=== PATIENT | female | born 1940 | race Caucasian/White ===

== ENCOUNTER 2016-09-09 09:40 | Day surgery (SDC) | payer OTHER ==
[~2016-09-09] VITALS: Ht 172.7 cm; Wt 74.0 kg
[~2016-09-09 09:40] MED LIST: AMLO10TA2 PO; APIX2.5T PO; ASPI325T4 PO; DILT240C2 PO; EZET10TA3 PO; LOSA25TA5 PO; LOVA10TA PO; METO25TA35 PO; VALS160T3 PO
[2016-09-09 10:08] VITALS: BP 148/86
[2016-09-09] MEDS ORDERED: DIGO125T PO (10:27)
[2016-09-09] MEDS ORDERED: CHOL500014 PO (10:27)
[2016-09-09] MEDS ORDERED: MONT10TA9 PO (10:27)
[2016-09-09 10:44] LABS: BLOOD UREA NITROGEN 23 mg/dL (7-18)
[2016-09-09] MEDS ORDERED: PROPOFOL 10 MG/ML, 20ML ONE (10:58)
== END 2016-09-09 12:33 ==
LOC: CACL 09:40
PROVIDERS: ATTEND Internal Medicine Cardiovascular Disease
DX: I48.91 Unspecified atrial fibrillation (principal); I10 Essential (primary) hypertension; E21.3 Hyperparathyroidism, unspecified; J45.909 Unspecified asthma, uncomplicated; E78.2 Mixed hyperlipidemia; J44.9 Chronic obstructive pulmonary disease, unspecified; I25.10 Atherosclerotic heart disease of native coronary artery without angina pectoris; Z95.1 Presence of aortocoronary bypass graft; Z88.1 Allergy status to other antibiotic agents; Z79.01 Long term (current) use of anticoagulants
CPT/HCPCS: 36415; 80048; 92960; 93005; J2704

== ENCOUNTER → 2016-09-18 | Outpatient (CLI) | payer OTHER ==
[~2016-09-18] MED LIST changes: +CHOL500014 PO; +DIGO125T PO; +MONT10TA9 PO
== END | disposition home or self-care (01) ==
LOC: RAD 14:44
PROVIDERS: ATTEND Internal Medicine Cardiovascular Disease
DX: I63.9 Cerebral infarction, unspecified (principal); H53.451 Other localized visual field defect, right eye
CPT/HCPCS: 70544; 70549; 70553

== ENCOUNTER → 2016-09-18 | Outpatient (CLI) | payer OTHER | END | disposition home or self-care (01) | LOC: CFH 13:20 | PROVIDERS: ATTEND Internal Medicine Cardiovascular Disease | DX: I08.1 Rheumatic disorders of both mitral and tricuspid valves (principal); I48.0 Paroxysmal atrial fibrillation | CPT/HCPCS: 93306 ==

== ENCOUNTER → 2016-10-15 | Outpatient (CLI) | payer OTHER ==
[~2016-10-15] MED LIST changes: +ASPI325T17 PO; -ASPI325T4 PO
== END | disposition home or self-care (01) ==
LOC: CFH 06:38
PROVIDERS: ATTEND Internal Medicine Cardiovascular Disease
DX: R74.8 Abnormal levels of other serum enzymes (principal); R79.89 Other specified abnormal findings of blood chemistry
CPT/HCPCS: 76700

== ENCOUNTER 2017-10-31 15:05 | Emergency (ER) | payer OTHER ==
[~2017-10-31] VITALS: Ht 172.7 cm; Wt 74.0 kg
[~2017-10-31 15:05] MED LIST changes: +ALBU0.63 NEB; +ALBU8.5H8 INH; -AMLO10TA2 PO; +AMLO10TA6 PO; -CHOL500014 PO; +CHOL500045 PO; +EZET10TA18 PO; -EZET10TA3 PO; +FLUT1AER INH; -LOSA25TA5 PO; +LOSA25TA6 PO; +SOTA80TA18 PO
[2017-10-31] MEDS ORDERED: SODIUM CHLORIDE FLUSH 10ML SYR IVF ONE (15:30)
[2017-10-31 15:48] LABS: ALBUMIN 3.7 g/dL (3.4-5.0); ANION GAP 9 mmol/L (5-15); BASOPHILS # (AUTO) 0.04 x10^3/uL (0-0.1); BASOPHILS % (AUTO) 1 % (0-1); CALCIUM 9.5 mg/dL (8.5-10.1); CHLORIDE 108 mmol/L (98-107); CREATININE 0.82 mg/dL (0.55-1.02); EOSINOPHILS # (AUTO) 0.13 x10^3/uL (0-0.4); EOSINOPHILS % (AUTO) 2 % (1-7); LYMPHOCYTES # (AUTO) 1.48 x10^3/uL (1-3.4); LYMPHOCYTES % (AUTO) 27 % (22-44); MD NO; MEAN CORPUSCULAR HEMOGLOBIN 28.7 pg (27.0-34.8); MEAN CORPUSCULAR HGB CONC 33.6 g/dL (32.4-35.8); MEAN CORPUSCULAR VOLUME 85.4 fL (80-100); MONOCYTES # (AUTO) 0.69 x10^3/uL (0.2-0.8); MONOCYTES % (AUTO) 12 % (2-9); NEUTROPHILS # (AUTO) 3.23 x10^3/uL (1.8-6.8); NEUTROPHILS % (AUTO) 58 % (42-75); PLATELET COUNT 233 x10^3/uL (130-400); RED BLOOD COUNT 4.82 x10^6/uL (3.82-5.3); RED CELL DISTRIBUTION WIDTH 13.9 % (9.6-15.2)
[2017-10-31 15:51] LABS: INTERNATIONAL NORMALIZED RATIO 1.02 (0.93-1.1); PROTHROMBIN TIME 10.6 Seconds (9.6-11.5)
[2017-10-31 15:52] LABS: TROPONIN I < 0.015 ng/mL (0.000-0.045)
[2017-10-31] MEDS ORDERED: PROPOFOL 10 MG/ML, 20ML ONE (15:56)
[2017-10-31] MEDS ORDERED: PROPOFOL 10 MG/ML, 20ML IVPush ONE (16:30)
[2017-10-31 17:39] VITALS: BP 135/76
== END 2017-10-31 17:42 | disposition home or self-care (01) ==
LOC: ED 17:20
DX: I48.0 Paroxysmal atrial fibrillation (principal); I25.2 Old myocardial infarction; I10 Essential (primary) hypertension; J45.909 Unspecified asthma, uncomplicated; Z88.2 Allergy status to sulfonamides
CPT/HCPCS: 36415; 71045; 80048; 82040; 83735; 84484; 85025; 85610; 85730; 92960; 93005; 99285; J2704

== ENCOUNTER → 2018-03-04 | Outpatient (CLI) | payer OTHER ==
[~2018-03-04] MED LIST changes: +LOSA25TA25 PO; -LOSA25TA6 PO; +REGADENOSON 0.4 MG/5 ML SYRINGE ONE
== END | disposition home or self-care (01) ==
LOC: CFH 12:08
PROVIDERS: ATTEND Internal Medicine Cardiovascular Disease
DX: I07.1 Rheumatic tricuspid insufficiency (principal); I37.1 Nonrheumatic pulmonary valve insufficiency; I34.8 Other nonrheumatic mitral valve disorders; I10 Essential (primary) hypertension; I25.2 Old myocardial infarction; I48.91 Unspecified atrial fibrillation; R06.02 Shortness of breath
CPT/HCPCS: 78452; 93017; 93306; A9502; J2785

== ENCOUNTER 2018-03-13 11:35 | Observation (INO) | payer OTHER ==
[~2018-03-13] VITALS: Ht 172.7 cm; Wt 69.8 kg
[~2018-03-13 11:35] MED LIST changes: -AMLO10TA6 PO; +AMLO10TA8 PO; -REGADENOSON 0.4 MG/5 ML SYRINGE ONE
[2018-03-13] MEDS ORDERED: SODIUM CHLORIDE 0.9% 1,000 ML IV ONE (12:29)
[2018-03-13 12:32] VITALS: BP 149/76
[2018-03-13] MEDS ORDERED: BECL10.62 INH (12:43)
[2018-03-13] MEDS ORDERED: METO25TA35 PO (12:47)
[2018-03-13] MEDS ORDERED: ASCO10004 PO (12:47)
[2018-03-13] MEDS ORDERED: VITA1CAP PO (12:47)
[2018-03-13] MEDS ORDERED: HYDR-3342 PO (12:47)
[2018-03-13] MEDS ORDERED: NITR0.4T SL (12:47)
[2018-03-13 13:12] LABS: BASOPHILS # (AUTO) 0.06 x10^3/uL (0-0.1); BASOPHILS % (AUTO) 1 % (0-1); EOSINOPHILS # (AUTO) 0.09 x10^3/uL (0-0.4); EOSINOPHILS % (AUTO) 2 % (1-7); LYMPHOCYTES # (AUTO) 1.19 x10^3/uL (1-3.4); LYMPHOCYTES % (AUTO) 24 % (22-44); MD NO; MEAN CORPUSCULAR HGB CONC 32.9 g/dL (32.4-35.8); MEAN CORPUSCULAR VOLUME 85.1 fL (80-100); MONOCYTES # (AUTO) 0.49 x10^3/uL (0.2-0.8); MONOCYTES % (AUTO) 10 % (2-9); NEUTROPHILS # (AUTO) 3.17 x10^3/uL (1.8-6.8); NEUTROPHILS % (AUTO) 63 % (42-75); PLATELET COUNT 217 x10^3/uL (130-400); RED BLOOD COUNT 4.59 x10^6/uL (3.82-5.3); RED CELL DISTRIBUTION WIDTH 13.8 % (9.6-15.2)
[2018-03-13 13:22] LABS: ANION GAP 10 mmol/L (5-15); CALCIUM 9.9 mg/dL (8.5-10.1); CHLORIDE 105 mmol/L (98-107); CREATININE 0.73 mg/dL (0.55-1.02)
[2018-03-13] MEDS ORDERED: MIDAZOLAM 1 MG/ML, 5ML ONE (14:04)
[2018-03-13] MEDS ORDERED: BIVALIRUDIN 250 MG ONE (14:04)
[2018-03-13] MEDS ORDERED: LIDOCAINE 2%, 20ML ONE (14:04)
[2018-03-13] MEDS ORDERED: FENTANYL PF 100 MCG/2ML ONE (14:04)
[2018-03-13] MEDS ORDERED: BIVALIRUDIN 250 MG in DEXTROSE 5% 100 ML IV SCH (15:49)
[2018-03-13] MEDS ORDERED: ASPIRIN 325 MG TABLET EC ONE (15:50)
[2018-03-13] MEDS ORDERED: CHOLECALCIFEROL 5,000u TAB PO ONE (16:00)
[2018-03-13] MEDS ORDERED: ZOLPIDEM 5MG TABLET PO PRN (16:00)
[2018-03-13] MEDS ORDERED: BECLOMETHASONE DIPROPIONATE 80 MCG INH PRN (16:00)
[2018-03-13] MEDS ORDERED: ONDANSETRON 2MG/ML, 2ML IVPush PRN (16:00)
[2018-03-13] MEDS ORDERED: ACETAMINOPHEN 325 MG TABLET PO PRN (16:00)
[2018-03-13] MEDS ORDERED: METOPROLOL TARTRATE 25 MG TABLET PO PRN (16:00)
[2018-03-13 16:59] VITALS: BP 144/76
[2018-03-13] MEDS: SODIUM CHLORIDE 0.9% 1,000 ML IV SCH ×2 (17:46→23:49)
[2018-03-13] MEDS ORDERED: SODIUM CHLORIDE 0.9% IV SCH (18:00)
[2018-03-13] MEDS ORDERED: BIVALIRUDIN IV SCH (18:00)
[2018-03-13 19:24] VITALS: BP 138/66
[2018-03-13] MEDS: TICAGRELOR 90 MG TABLET PO SCH (21:00)
[2018-03-13] MEDS ORDERED: AMLODIPINE 10 MG TAB PO SCH (21:00)
[2018-03-13] MEDS: SOTALOL 80MG TABLET PO SCH (21:11)
[2018-03-13] MEDS: APIXABAN 2.5 MG TABLET PO SCH (21:12)
[2018-03-13 22:38] LABS: TROPONIN I 0.121 ng/mL (0.000-0.045)
[2018-03-14 00:20] VITALS: BP 125/71
[2018-03-14] MEDS: SODIUM CHLORIDE 0.9% 1,000 ML IV SCH (01:17)
[2018-03-14 04:32] LABS: ANION GAP 9 mmol/L (5-15); CALCIUM 9.8 mg/dL (8.5-10.1); CHLORIDE 106 mmol/L (98-107); CREATININE 0.59 mg/dL (0.55-1.02)
[2018-03-14 06:20] VITALS: BP 118/68
[2018-03-14] MEDS: TICAGRELOR 90 MG TABLET PO SCH (08:25)
[2018-03-14] MEDS: APIXABAN 2.5 MG TABLET PO SCH (08:25)
[2018-03-14] MEDS: SOTALOL 80MG TABLET PO SCH (08:26)
[2018-03-14] MEDS ORDERED: ASPIRIN 81 MG TABLET EC PO SCH (09:00)
[2018-03-14] MEDS ORDERED: MULTIVITS,STRESS FORMULA 1 TABLET PO SCH (09:00)
[2018-03-14] MEDS ORDERED: ASCORBIC ACID 500 MG TABLET PO SCH (09:00)
[2018-03-14] MEDS ORDERED: VALSARTAN 320 MG TABLET PO SCH (09:00)
[2018-03-14] MEDS ORDERED: ASPI81TA45 PO (10:49)
[2018-03-14] MEDS ORDERED: TICA90TA PO (10:49)
== END 2018-03-14 12:51 | disposition home or self-care (01) ==
LOC: CACL 11:35 → 5SO 16:56 → CACL 23:09 → 5SO 23:17
PROVIDERS: ADMIT Internal Medicine Cardiovascular Disease; ATTEND Internal Medicine Cardiovascular Disease
DX: I25.10 Atherosclerotic heart disease of native coronary artery without angina pectoris (principal); I48.0 Paroxysmal atrial fibrillation; R05 Cough; I10 Essential (primary) hypertension; E78.2 Mixed hyperlipidemia; I34.0 Nonrheumatic mitral (valve) insufficiency; R74.8 Abnormal levels of other serum enzymes; H53.451 Other localized visual field defect, right eye; R10.9 Unspecified abdominal pain; Z79.01 Long term (current) use of anticoagulants; Z95.1 Presence of aortocoronary bypass graft
CPT/HCPCS: 36415; 80048; 84484; 85014; 85018; 85025; 93005; 93459; 96365; 99156; 99157; C1725; C1760; C1769; C1874; C1887; C1894; C9600; G0378; J0583; J2250; J3010; J3490; Q9967

== ENCOUNTER 2018-06-29 10:47 | Day surgery (SDC) | payer OTHER ==
[~2018-06-29] VITALS: Ht 172.7 cm; Wt 68.0 kg
[~2018-06-29 10:47] MED LIST changes: +ASCO10004 PO; +ASPI81TA45 PO; +BECL10.62 INH; +HYDR-3342 PO; +NITR0.4T SL; +TICA90TA PO; +VITA1CAP PO
[2018-06-29 11:09] VITALS: BP 143/93
[2018-06-29] MEDS ORDERED: PRAS10TA4 PO (11:19)
[2018-06-29] MEDS ORDERED: UMEC1DIS INH (11:19)
[2018-06-29] MEDS ORDERED: PROPOFOL 10 MG/ML, 50ML ONE (11:44)
== END 2018-06-29 13:15 | disposition home or self-care (01) ==
LOC: CACL 10:47
PROVIDERS: ATTEND Internal Medicine Cardiovascular Disease
DX: I48.0 Paroxysmal atrial fibrillation (principal); I47.1 Supraventricular tachycardia; I25.10 Atherosclerotic heart disease of native coronary artery without angina pectoris; I10 Essential (primary) hypertension; I34.0 Nonrheumatic mitral (valve) insufficiency; J45.909 Unspecified asthma, uncomplicated; E78.2 Mixed hyperlipidemia; E21.0 Primary hyperparathyroidism; E66.3 Overweight; Z68.22 Body mass index [BMI] 22.0-22.9, adult; Z79.01 Long term (current) use of anticoagulants; Z79.899 Other long term (current) drug therapy; Z88.2 Allergy status to sulfonamides; Z88.8 Allergy status to other drugs, medicaments and biological substances; Z95.5 Presence of coronary angioplasty implant and graft; Z98.890 Other specified postprocedural states
CPT/HCPCS: 92960; J2704

== ENCOUNTER 2018-12-15 08:40 | Outpatient (CLI) | payer MEDICARE, OTHER ==
[~2018-12-15 08:40] MED LIST changes: +AMIO200T42 PO; +APIX5TAB PO; -EZET10TA18 PO; +EZET10TA70 PO; -NITR0.4T SL; +NITR0.4T41 SL; +PRAS10TA4 PO; +UMEC1DIS INH
== END 2018-12-15 23:59 | disposition home or self-care (01) ==
LOC: CFH 08:40
PROVIDERS: ATTEND Internal Medicine Critical Care Medicine
DX: R91.1 Solitary pulmonary nodule (principal); J44.9 Chronic obstructive pulmonary disease, unspecified
CPT/HCPCS: 71250

== ENCOUNTER 2019-03-25 12:24 | Outpatient (CLI) | payer OTHER ==
[~2019-03-25 12:24] MED LIST changes: -DIGO125T PO; +DIGO125T85 PO; +MONT10TA11 PO; -MONT10TA9 PO
[2019-03-25] MEDS ORDERED: OMNIPAQUE 350 MG/ML, 75ML BOTTLE ONE (15:00)
[2019-04-02] MEDS ORDERED: AMIO100T4 PO (00:42)
[2019-04-02] MEDS ORDERED: LEVO25TA2 PO (10:45)
== END 2019-03-25 23:59 | disposition home or self-care (01) ==
LOC: RAD 12:24
PROVIDERS: ATTEND Internal Medicine Cardiovascular Disease
DX: I63.81 Other cerebral infarction due to occlusion or stenosis of small artery (principal); R41.3 Other amnesia
CPT/HCPCS: 70460; Q9967

== ENCOUNTER 2019-07-02 07:43 | Day surgery (SDC) | payer MEDICARE, OTHER ==
[~2019-07-02 07:43] MED LIST changes: +AMIO100T4 PO; +LEVO25TA2 PO
[2019-07-02 08:20] VITALS: BP 125/73
[2019-07-02] MEDS ORDERED: ATEN25TA PO (08:31)
[2019-07-02] MEDS ORDERED: FLUT1AER INH (08:31)
[2019-07-02] MEDS ORDERED: PRAS10TA4 PO (08:31)
[2019-07-02] MEDS ORDERED: LEVO50TA5 PO (08:31)
[2019-07-02 09:12] LABS: ANION GAP 7 mmol/L (5-15); CALCIUM 9.2 mg/dL (8.5-10.1); CHLORIDE 111 mmol/L (98-107); CREATININE 1.18 mg/dL (0.55-1.02)
[2019-07-02] MEDS ORDERED: PROPOFOL 10 MG/ML, 20ML ONE (09:52)
== END 2019-07-02 11:28 | disposition home or self-care (01) ==
LOC: CACL 07:43
PROVIDERS: ATTEND Internal Medicine Cardiovascular Disease
DX: I48.0 Paroxysmal atrial fibrillation (principal); I34.0 Nonrheumatic mitral (valve) insufficiency; I10 Essential (primary) hypertension; E78.2 Mixed hyperlipidemia; E03.9 Hypothyroidism, unspecified; I25.10 Atherosclerotic heart disease of native coronary artery without angina pectoris; E66.3 Overweight; Z68.22 Body mass index [BMI] 22.0-22.9, adult; Z79.01 Long term (current) use of anticoagulants; Z79.890 Hormone replacement therapy; Z79.899 Other long term (current) drug therapy; Z88.2 Allergy status to sulfonamides; Z88.8 Allergy status to other drugs, medicaments and biological substances; Z95.1 Presence of aortocoronary bypass graft; Z98.890 Other specified postprocedural states
CPT/HCPCS: 36415; 80048; 92960; J2704

== ENCOUNTER → 2019-09-15 | Outpatient (CLI) | payer OTHER ==
[~2019-09-15] MED LIST changes: +ATEN25TA PO; +LEVO50TA5 PO
== END | disposition home or self-care (01) ==
LOC: RAD 13:41
PROVIDERS: ATTEND Psychiatry & Neurology Neurology
DX: M43.12 Spondylolisthesis, cervical region (principal); M50.122 Cervical disc disorder at C5-C6 level with radiculopathy; M47.22 Other spondylosis with radiculopathy, cervical region
CPT/HCPCS: 72141

== ENCOUNTER 2019-09-20 08:22 | Observation (INO) | payer MEDICARE, OTHER ==
[~2019-09-20] VITALS: Ht 152.4 cm; Wt 73.6 kg
[~2019-09-20 08:22] MED LIST changes: +ASCO100018 PO; -ASCO10004 PO
[2019-09-20 08:47] VITALS: BP 131/85
[2019-09-20] MEDS ORDERED: CEFAZOLIN PMX 1GM/50ML 50 ML IVPB ONE (09:00)
[2019-09-20 09:14] LABS: BASOPHILS # (AUTO) 0.04 x10^3/uL (0-0.1); BASOPHILS % (AUTO) 1 % (0-1); EOSINOPHILS # (AUTO) 0.11 x10^3/uL (0-0.4); EOSINOPHILS % (AUTO) 2 % (1-7); LYMPHOCYTES # (AUTO) 1.19 x10^3/uL (1-3.4); LYMPHOCYTES % (AUTO) 22 % (22-44); MD NO; MEAN CORPUSCULAR HEMOGLOBIN 28.5 pg (27.0-34.8); MEAN CORPUSCULAR HGB CONC 32.9 g/dL (32.4-35.8); MEAN PLATELET VOLUME 8.6 fL (7.4-10.4); MONOCYTES # (AUTO) 0.58 x10^3/uL (0.2-0.8); MONOCYTES % (AUTO) 11 % (2-9); NEUTROPHILS # (AUTO) 3.49 x10^3/uL (1.8-6.8); NEUTROPHILS % (AUTO) 65 % (42-75); PLATELET COUNT 219 x10^3/uL (130-400); RED BLOOD COUNT 4.89 x10^6/uL (3.82-5.3); RED CELL DISTRIBUTION WIDTH 14.1 % (9.6-15.2)
[2019-09-20 09:24] LABS: ANION GAP 6 mmol/L (5-15); CALCIUM 9.6 mg/dL (8.5-10.1); CHLORIDE 114 mmol/L (98-107); CREATININE 0.95 mg/dL (0.55-1.02)
[2019-09-20] MEDS ORDERED: LIDOCAINE 2%, 20ML ONE (09:26)
[2019-09-20] MEDS ORDERED: CEFAZOLIN 1,000 MG ONE (09:26)
[2019-09-20] MEDS ORDERED: CEFAZOLIN PMX 1GM/50ML 50 ML ONE (09:26)
[2019-09-20] MEDS ORDERED: MIDAZOLAM 1 MG/ML, 5ML ONE (09:26)
[2019-09-20] MEDS ORDERED: FENTANYL PF 100 MCG/2ML ONE (09:26)
[2019-09-20] MEDS: SODIUM CHLORIDE 0.9% 1,000 ML IV SCH ×3 (10:00→19:19)
[2019-09-20] MEDS ORDERED: CHOLECALCIFEROL 1,000 UNIT TABLET PO SCH (11:30)
[2019-09-20] MEDS ORDERED: HOLD MEDICATION MC PRN (11:30)
[2019-09-20] MEDS ORDERED: ACETAMINOPHEN 325 MG TABLET ONE (14:57)
[2019-09-20] MEDS: ACETAMINOPHEN 325 MG TABLET PO PRN ×2 (15:00→21:11)
[2019-09-20 16:29] VITALS: BP 127/81
[2019-09-20] MEDS ORDERED: VALS320T15 PO (16:32)
[2019-09-20] MEDS: [UNRECOGNIZED DRUG - REMARK] MC SCH ×2 (17:00→23:52)
[2019-09-20] MEDS: CEFAZOLIN PMX 1GM/50ML 50 ML IVPB SCH (17:54)
[2019-09-20 18:27] VITALS: BP 130/79
[2019-09-20] MEDS: SODIUM CHLORIDE FLUSH 10ML SYR IVF SCH (19:47)
[2019-09-20] MEDS: APIXABAN 5 MG TABLET PO SCH (19:47)
[2019-09-20] MEDS ORDERED: AMLODIPINE 5 MG TABLET PO SCH (21:00)
[2019-09-21] MEDS: CEFAZOLIN PMX 1GM/50ML 50 ML IVPB SCH (00:56)
[2019-09-21 01:22] VITALS: BP 128/77
[2019-09-21] MEDS: ACETAMINOPHEN 325 MG TABLET PO PRN (01:46)
[2019-09-21 06:57] VITALS: BP 131/84
[2019-09-21] MEDS: APIXABAN 5 MG TABLET PO SCH (08:50)
[2019-09-21] MEDS: SODIUM CHLORIDE FLUSH 10ML SYR IVF SCH (08:51)
[2019-09-21] MEDS: SODIUM CHLORIDE 0.9% 1,000 ML IV SCH (08:52)
[2019-09-21] MEDS: [UNRECOGNIZED DRUG - REMARK] MC SCH (08:58)
[2019-09-21] MEDS ORDERED: ATENOLOL 25 MG TABLET PO SCH (09:00)
[2019-09-21] MEDS ORDERED: LEVOTHYROXINE 75 MCG TABLET PO SCH (09:00)
[2019-09-21] MEDS ORDERED: FLUTICASONE/VILANTEROL 100-25MCG/INH INH SCH (09:00)
[2019-09-21] MEDS ORDERED: ACET325T26 PO (10:34)
== END 2019-09-21 12:15 | disposition home or self-care (01) ==
LOC: CACL 08:22 → ORIP 11:23 → 5SO 16:16 → DCLOUNGE 09-21 11:58
PROVIDERS: ADMIT Internal Medicine Cardiovascular Disease; ATTEND Internal Medicine Cardiovascular Disease
DX: Z03.818 Encounter for observation for suspected exposure to other biological agents ruled out (principal); I49.5 Sick sinus syndrome; J44.9 Chronic obstructive pulmonary disease, unspecified; I10 Essential (primary) hypertension; E78.2 Mixed hyperlipidemia; D68.69 Other thrombophilia; I48.0 Paroxysmal atrial fibrillation; I25.10 Atherosclerotic heart disease of native coronary artery without angina pectoris; I34.0 Nonrheumatic mitral (valve) insufficiency; Z79.01 Long term (current) use of anticoagulants; Z95.5 Presence of coronary angioplasty implant and graft
CPT/HCPCS: 33208; 36415; 71045; 71046; 80048; 85025; 87635; 96365; 96366; 99156; C1779; C1785; C1892; G0378; J0690; J2250; J3010; J3490

== ENCOUNTER 2019-11-03 08:03 | Observation (INO) | payer OTHER ==
[~2019-11-03] VITALS: Ht 175.3 cm; Wt 73.0 kg
[~2019-11-03 08:03] MED LIST changes: +ACET325T26 PO; +VALS320T15 PO
[2019-11-03] MEDS ORDERED: SODIUM CHLORIDE 0.9% 1,000 ML IV SCH (08:29)
[2019-11-03 09:15] VITALS: BP 136/81
[2019-11-03 09:44] LABS: BASOPHILS # (AUTO) 0.04 x10^3/uL (0-0.1); BASOPHILS % (AUTO) 1 % (0-1); EOSINOPHILS # (AUTO) 0.13 x10^3/uL (0-0.4); EOSINOPHILS % (AUTO) 2 % (1-7); LYMPHOCYTES # (AUTO) 0.96 x10^3/uL (1-3.4); LYMPHOCYTES % (AUTO) 18 % (22-44); MD NO; MEAN CORPUSCULAR VOLUME 87.6 fL (80-100); MEAN PLATELET VOLUME 8.6 fL (7.4-10.4); MONOCYTES # (AUTO) 0.49 x10^3/uL (0.2-0.8); MONOCYTES % (AUTO) 9 % (2-9); NEUTROPHILS % (AUTO) 70 % (42-75); PLATELET COUNT 202 x10^3/uL (130-400); RED BLOOD COUNT 4.76 x10^6/uL (3.82-5.3); RED CELL DISTRIBUTION WIDTH 13.9 % (9.6-15.2)
[2019-11-03 09:50] LABS: ANION GAP 8 mmol/L (5-15); CALCIUM 9.5 mg/dL (8.5-10.1); CHLORIDE 114 mmol/L (98-107); CREATININE 0.87 mg/dL (0.55-1.02)
[2019-11-03] MEDS ORDERED: FENTANYL PF 100 MCG/2ML ONE (11:31)
[2019-11-03] MEDS ORDERED: MIDAZOLAM 1 MG/ML, 5ML ONE (11:32)
[2019-11-03] MEDS ORDERED: LIDOCAINE 1%, 20ML ONE (11:32)
[2019-11-03] MEDS ORDERED: ACETAMINOPHEN 325 MG TABLET PO PRN (12:30)
[2019-11-03 13:13] VITALS: BP 133/72
[2019-11-03 19:50] VITALS: BP 128/82
[2019-11-03] MEDS: APIXABAN 5 MG TABLET PO SCH (19:58)
[2019-11-03] MEDS ORDERED: AMLODIPINE 5 MG TABLET PO SCH (21:00)
[2019-11-04 01:00] VITALS: BP 127/83
[2019-11-04] MEDS ORDERED: LEVOTHYROXINE 75 MCG TABLET PO SCH (06:00)
[2019-11-04 08:51] VITALS: BP 136/83
[2019-11-04] MEDS: APIXABAN 5 MG TABLET PO SCH (08:55)
[2019-11-04] MEDS ORDERED: FLUTICASONE/VILANTEROL 100-25MCG/INH INH SCH (09:00)
[2019-11-04] MEDS ORDERED: MULTIVITS,STRESS FORMULA 1 TABLET PO SCH (09:00)
[2019-11-04] MEDS ORDERED: VALSARTAN 320 MG TABLET PO SCH (09:00)
[2019-11-04] MEDS ORDERED: CHOLECALCIFEROL 1,000 UNIT TABLET PO SCH (09:00)
[2019-11-04] MEDS ORDERED: ASCORBIC ACID 500 MG TABLET PO SCH (09:00)
== END 2019-11-04 10:32 | disposition home or self-care (01) ==
LOC: CACL 08:03 → ORIP 12:16 → 5SO 12:42 → CACL 13:17 → 5SO 14:25 → DCLOUNGE 11-04 10:18
PROVIDERS: ADMIT Internal Medicine Cardiovascular Disease; ATTEND Internal Medicine Cardiovascular Disease
DX: I48.20 Chronic atrial fibrillation, unspecified (principal); I44.2 Atrioventricular block, complete; I48.0 Paroxysmal atrial fibrillation; R05 Cough; I10 Essential (primary) hypertension; E78.2 Mixed hyperlipidemia; I34.0 Nonrheumatic mitral (valve) insufficiency; I49.5 Sick sinus syndrome; H53.451 Other localized visual field defect, right eye; J45.909 Unspecified asthma, uncomplicated; E21.3 Hyperparathyroidism, unspecified; R74.8 Abnormal levels of other serum enzymes; R41.3 Other amnesia; Z98.61 Coronary angioplasty status; Z79.899 Other long term (current) drug therapy; Z79.01 Long term (current) use of anticoagulants
CPT/HCPCS: 36415; 71046; 80048; 85025; 93650; 99156; C1894; C2630; G0378; J2250; J3010; J3490

== ENCOUNTER → 2020-06-14 | Outpatient (CLI) | payer OTHER ==
[~2020-06-14] MED LIST changes: +AMLO-211 PO; -AMLO10TA8 PO; -MONT10TA11 PO; +MONT10TA17 PO; +REGADENOSON 0.4 MG/5 ML SYRINGE ONE
== END | disposition home or self-care (01) ==
LOC: CVU 06:40
PROVIDERS: ATTEND Internal Medicine Cardiovascular Disease
DX: I08.3 Combined rheumatic disorders of mitral, aortic and tricuspid valves (principal); I10 Essential (primary) hypertension; I48.0 Paroxysmal atrial fibrillation; I21.29 ST elevation (STEMI) myocardial infarction involving other sites; I21.19 ST elevation (STEMI) myocardial infarction involving other coronary artery of inferior wall; I25.89 Other forms of chronic ischemic heart disease; I25.10 Atherosclerotic heart disease of native coronary artery without angina pectoris; Z95.1 Presence of aortocoronary bypass graft
CPT/HCPCS: 78452; 93017; 93306; A9502; J2785